=== PATIENT | female | born 1990 | race Caucasian/White ===

== ENCOUNTER 2016-12-22 20:27 | Observation (INO) | payer OTHER ==
[~2016-12-22 20:27] MED LIST: VENTAER INH
[2016-12-22] MEDS: SODIUM CHLORIDE 0.9% FLUSH 10 ML FLUSH IV FLUSH SCH (21:00)
[2016-12-22] MEDS ORDERED: SODIUM CHLORIDE 0.9% FLUSH 10 ML FLUSH IV FLUSH PRN (21:00)
[2016-12-22] MEDS ORDERED: RESP: ALBUTEROL 1.25 MG/3 ML NEB (PRN) NEB (21:00)
[2016-12-22] MEDS: SODIUM CHLOR 0.9% 1000 ML INJ 1,000 ML IV SCH (21:20)
[2016-12-22] MEDS: MORPHINE SULFATE 4 MG/ML INJ IV PUSH PRN (21:20)
[2016-12-22] MEDS: ENOXAPARIN SODIUM 40 MG/0.4 ML SYRINGE SQ SCH (21:22)
[2016-12-22 22:21] VITALS: O2SAT 100
[2016-12-23] VITALS: BP 111/72; PULSE 77; RESP 20; TEMP 97.6; O2SAT 100
[2016-12-23] MEDS: MORPHINE SULFATE 4 MG/ML INJ IV PUSH PRN ×5 (00:24→13:59)
[2016-12-23] MEDS: ONDANSETRON HCL 4 MG/2 ML VIAL IV PRN ×3 (00:24→13:58)
[2016-12-23] MEDS: SODIUM CHLOR 0.9% 1000 ML INJ 1,000 ML IV SCH ×2 (05:19→15:48)
[2016-12-23 06:48] LABS: BASOPHIL % 0.3 % (0.0-2.0); EOSINOPHIL % 18.8 % (0.0-4.0); HEMATOCRIT 33.9 % (35.0-46.0); HEMO FLAGS DIFF FINAL; LYMPH % 38.5 % (9.0-44.0); MEAN CELL VOLUME 82.5 FL (80.0-100.0); MEAN CORPUSCULAR HEMOGLOBIN 26.5 PG (27.0-34.0); MEAN CORPUSCULAR HGB CONC 32.1 % (32.0-36.0); MONO % 4.4 % (0.0-8.0); PLATELET COUNT 305 TH/MM3 (150-450); RED BLOOD COUNT 4.11 MIL/MM3 (4.00-5.30); RED CELL DISTRIBUTION WIDTH 14.3 % (11.6-17.2); WHITE BLOOD COUNT 10.5 TH/MM3 (4.0-11.0)
[2016-12-23 06:57] LABS: POTASSIUM 3.6 MEQ/L (3.5-5.1)
[2016-12-23 07:03] LABS: BICARBONATE 26.9 MEQ/L (21.0-32.0)
[2016-12-23 08:00] VITALS: BP 94/63; PULSE 71; RESP 18; TEMP 97.5; O2SAT 99
[2016-12-23] MEDS: SODIUM CHLORIDE 0.9% FLUSH 10 ML FLUSH IV FLUSH SCH ×2 (08:14→20:11)
[2016-12-23] MEDS ORDERED: ACETAMINOPHEN 325 MG TAB PO PRN (08:30)
[2016-12-23] MEDS ORDERED: NALOXONE HCL 0.4 MG/ML AMP IV PRN (08:30)
[2016-12-23] MEDS ORDERED: DOCUSATE SODIUM 100 MG CAP PO SCH (08:30)
[2016-12-23] MEDS ORDERED: BISACODYL 10 MG SUPP RECTAL PRN (08:30)
--- NOTE | 2016-12-23 09:48 | HHI.HP ---
[facility] Service [facility] ([place], [place])ists Primary Care Physician No Primary Care Physician Admission Diagnosis Abdominal pain Diagnoses: Chief Complaint: Abdominal pain Travel History International Travel<30 Days: No Contact w/Intl Traveler <30 Da: No Traveled to Known Affected Are: No History of Present Illness This is a 26-year-old female with past medical history of endometriosis and ovarian cyst. She comes in complaining of lower abdominal pain that started 1 week ago. It is constant moderate dull pain with sharp exacerbations specially after eating in the lower abdomen associated with nausea and diarrhea and she did have a few episodes of vomiting a couple days ago. Has been taking Imodium without any relief of her watery diarrhea and denies fever, chills, urinary symptoms, bloody stool, rash, back pain, dizzy, lightheaded, recent antibiotic use, recent travels or sick contacts. She has been drinking well water but uses filter. States her diarrhea has improved the last couple of days but continues to have abdominal pain requiring IV morphine. Review of Systems Except as stated in HPI: all other systems reviewed are Neg Past Family Social History Past Medical History As previously mentioned. Also with asthma. LMP a week ago on Depo shots Past Surgical History No previous surgery Reported Medications Ventolin Hfa 18 GM Inh (Albuterol Sulfate) 90 Mcg/Act Aer 1 Puff INH Q4H PRN Allergies: Coded Allergies: No Known Allergies (Unverified , 12/22/16) Family History Father with Crohn's disease. Grandmother with thyroid cancer Social History Does not drink. Uses E cig Physical Exam Vital Signs Vital Signs Date Time Temp Pulse Resp B/P Pulse Ox O2 Delivery O2 Flow Rate FiO2 12/23/16 08:00 97.5 71 18 94/63 99 12/23/16 04:15 18 12/23/16 00:00 97.6 77 20 111/72 100 12/22/16 22:21 100 21 Physical Exam GENERAL: This is a well-nourished, well-developed patient, in distress due to pain SKIN: No rashes, ecchymoses or lesions. Cool and dry. HEAD: Atraumatic. Normocephalic. No temporal or scalp tenderness. EYES: Pupils equal round and reactive. Extraocular motions intact. No scleral icterus. No injection or drainage. ENT: Nose without bleeding, purulent drainage or septal hematoma. Throat without erythema, tonsillar hypertrophy or exudate. Uvula midline. Airway patent. NECK: Trachea midline. No JVD or lymphadenopathy. Supple, nontender, no meningeal signs. CARDIOVASCULAR: Regular rate and rhythm without murmurs, gallops, or rubs. RESPIRATORY: Clear to auscultation. Breath sounds equal bilaterally. No wheezes , rales, or rhonchi. GASTROINTESTINAL: Abdomen soft, tender lower quadrants with Rovsing sign, nondistended. No rebound tenderness. No guarding. No CVA tenderness MUSCULOSKELETAL: Extremities without clubbing, cyanosis, or edema. No joint tenderness, effusion, or edema noted. No calf tenderness. Negative Homans sign bilaterally. NEUROLOGICAL: Awake and alert. Cranial nerves II through XII intact. Motor and sensory grossly within normal limits. Five out of 5 muscle strength in all muscle groups. Normal speech. Laboratory Laboratory Tests Test 12/23/16 05:27 White Blood Count 10.5 Red Blood Count 4.11 Hemoglobin 10.9 Hematocrit 33.9 Mean Corpuscular Volume 82.5 Mean Corpuscular Hemoglobin 26.5 Mean Corpuscular Hemoglobin 32.1 Concent Red Cell Distribution Width 14.3 Platelet Count 305 Mean Platelet Volume 8.4 Neutrophils (%) (Auto) 38.0 Lymphocytes (%) (Auto) 38.5 Monocytes (%) (Auto) 4.4 Eosinophils (%) (Auto) 18.8 Basophils (%) (Auto) 0.3 Neutrophils # (Auto) 4.0 Lymphocytes # (Auto) 4.0 Monocytes # (Auto) 0.5 Eosinophils # (Auto) 2.0 Basophils # (Auto) 0.0 CBC Comment DIFF FINAL Differential Comment Sodium Level 145 Potassium Level 3.6 Chloride Level 111 Carbon Dioxide Level 26.9 Anion Gap 7 Blood Urea Nitrogen 4 Creatinine 0.65 Estimat Glomerular Filtration 111 Rate Random Glucose 80 Calcium Level 8.0 Lipase 189 Result Diagram: 12/23/1652612/23/16526 Assessment and Plan Problem List: (1) Diarrhea ICD Code: R19.7 Status: Acute (2) Abdominal pain ICD Code: R10.9 Status: Acute Assessment and Plan This is a 26-year-old female with past medical history of endometriosis and ovarian cyst. She comes in complaining of lower abdominal pain associated with nausea, vomiting and diarrhea that started 1 week ago. She also has an elevated lipase. Abdominal pain with nausea, vomiting and diarrhea. Patient continues to have significant abdominal pain requiring IV morphine. We'll obtain CT of the abdomen pelvis and stool studies. Continue IV hydration and pain management counseled regarding narcotics. Leukocytosis tender to above. We'll monitor Elevated lipase likely related to vomiting. Patient denies abdominal pain and tenderness. We'll monitor Normocytic normochromic anemia. No gross bleeding. We'll monitor. Likely secondary to menses Asthma. Not in exacerbation. Albuterol as needed. DVT prophylaxis with SCD and early ambulation. Discussed Condition With Patient and nursing staff Jamison Aragon MD December 23, 2016 09:48
[2016-12-23] MEDS ORDERED: DIATRIZOATE MEGLUM/DIATRIZOATE SOD 9 ML CUP PO ONE (10:30)
[2016-12-23 12:00] VITALS: BP 110/72; PULSE 69; RESP 18; TEMP 96.3; O2SAT 99
[2016-12-23] MEDS ORDERED: IOHEXOL 350 MG/ML 10 ML VIAL (for RAD DIAG) IV ONE (13:17)
--- NOTE | 2016-12-23 13:50 | RADHPO ---
EXAM DATE/TIME: 12/23/2016 13:01 [facility] COMPARISON: No previous studies available for comparison. INDICATIONS : Diffuse abdominal pain with nausea, vomiting, and diarrhea. IV CONTRAST: 95 cc Omnipaque 350 (iohexol) IV ORAL CONTRAST: Prescribed oral contrast ingested. RADIATION DOSE: 7.10 CTDIvol (mGy) MEDICAL HISTORY : Asthma. Endometriosis. Ovarian cysts. SURGICAL HISTORY : None. ENCOUNTER: Initial ACUITY: 1 week PAIN SCALE: 4/10 LOCATION: Bilateral abdomen/pelvis TECHNIQUE: Volumetric scanning of the abdomen and pelvis was performed. Using automated exposure control and ad justment of the mA and/or kV according to patient size, radiation dose was kept as low as reasonably achievable to obtain optimal diagnostic quality images. FINDINGS: LOWER LUNGS: The visualized lower lungs are clear. LIVER: Homogeneous density without lesion. There is no dilation of the biliary tree. No calcified gallston es. SPLEEN: Normal size without lesion. PANCREAS: Within normal limits. KIDNEYS: Normal in size and shape. There is no mass, stone or hydronephrosis. ADRENAL GLANDS: Within normal limits. VASCULAR: There is no aortic aneurysm. BOWEL/MESENTERY: The stomach, small bowel, and colon demonstrate no acute abnormality. There is no free intraperitone al air. Small amount of free fluid is identified in the pelvis. ABDOMINAL WALL: Within normal limits. RETROPERITONEUM: There is no lymphadenopathy. BLADDER: No wall thickening or mass. REPRODUCTIVE: Within normal limits. INGUINAL: There is no lymphadenopathy or hernia. MUSCULOSKELETAL: Within normal limits for patient age. CONCLUSION: Small amount of free fluid in the pelvis. No other evidence of acute process. Prashant Peng MD on December 23, 2016 at 13:34 Board Certified Radiologist. This report was verified electronically.
[2016-12-23] MEDS ORDERED: IBUPROFEN 400 MG TAB PO PRN (14:45)
[2016-12-23] MEDS ORDERED: KETOROLAC TROMETHAMINE 30 MG/ML (IVP) VIAL IVP PRN ×2 (14:45)
[2016-12-23] MEDS ORDERED: IBUP-232 PO (14:52)
--- NOTE | 2016-12-23 14:52 | HHI.DCPOC ---
Discharge Care Plan Diagnosis: (1) Abdominal pain (2) Diarrhea Your Health Problems Are: Difficulty with ADL Exercise Tolerance Goals to Promote Your Health * To prevent worsening of your condition and complications * To maintain your health at the optimal level Directions to Meet Your Goals Take your medications as prescribed Follow your dietary instruction Follow activity as directed Keep your appointments as scheduled Take your immunizations and boosters as scheduled If your symptoms worsen call your PCP, if no PCP go to Urgent Care Center or Emergency Room Smoking is Dangerous to Your Health. Avoid second hand smoke Call the 24-hour hour crisis hotline for domestic abuse at Jamison Aragon MD December 23, 2016 14:52
[2016-12-23 16:00] VITALS: BP 106/72; PULSE 73; RESP 18; TEMP 97; O2SAT 92
[2016-12-23] MEDS: IBUPROFEN 600 MG TAB PO PRN (17:56)
[2016-12-23 20:00] VITALS: BP 107/64; PULSE 81; RESP 16; TEMP 97; O2SAT 99
[2016-12-23] MEDS: ENOXAPARIN SODIUM 40 MG/0.4 ML SYRINGE SQ SCH (20:14)
[2016-12-23 21:20] LABS: C. DIFF EPI 027 PRESUMPTIVE NEGATIVE (NEGATIVE); C. DIFF TOXIN PCR NEGATIVE (NEGATIVE)
[2016-12-24] VITALS: BP 92/52; PULSE 65; RESP 16; TEMP 98.4; O2SAT 98
[2016-12-24] MEDS: IBUPROFEN 600 MG TAB PO PRN ×2 (00:56→09:07)
[2016-12-24] MEDS: SODIUM CHLOR 0.9% 1000 ML INJ 1,000 ML IV SCH (04:29)
[2016-12-24 05:44] LABS: AUTOMATED NEUTROPHIL # 4.1 TH/MM3 (1.8-7.7); BASOPHIL # 0.1 TH/MM3 (0-0.2); BASOPHIL % 1.1 % (0.0-2.0); EOSINOPHIL # 1.6 TH/MM3 (0-0.4); EOSINOPHIL % 17.1 % (0.0-4.0); HEMATOCRIT 36.6 % (35.0-46.0); HEMO FLAGS DIFF FINAL; LYMPH % 34.5 % (9.0-44.0); LYMPHOCYTE # 3.2 TH/MM3 (1.0-4.8); MEAN CELL VOLUME 82.4 FL (80.0-100.0); MEAN CORPUSCULAR HEMOGLOBIN 26.6 PG (27.0-34.0); MEAN CORPUSCULAR HGB CONC 32.3 % (32.0-36.0); MONO % 4.6 % (0.0-8.0); NEUT % 42.7 % (16.0-70.0); PLATELET COUNT 358 TH/MM3 (150-450); RED BLOOD COUNT 4.44 MIL/MM3 (4.00-5.30); RED CELL DISTRIBUTION WIDTH 13.9 % (11.6-17.2); WHITE BLOOD COUNT 9.4 TH/MM3 (4.0-11.0)
[2016-12-24 05:47] LABS: POTASSIUM 4.2 MEQ/L (3.5-5.1)
[2016-12-24 05:50] LABS: BICARBONATE 25.8 MEQ/L (21.0-32.0); MAGNESIUM 2.2 MG/DL (1.5-2.5)
[2016-12-24 08:00] VITALS: BP 99/68; PULSE 80; RESP 20; TEMP 99.2; O2SAT 98
[2016-12-24] MEDS: SODIUM CHLORIDE 0.9% FLUSH 10 ML FLUSH IV FLUSH SCH (09:00)
--- NOTE | 2016-12-24 10:36 | HHI.PR ---
Subjective Remarks Follow-up gastroenteritis. She had 4 loose stools yesterday non-today. Improved abdominal pain. Tolerating diet. She wants to go home. Discussed with RN Objective Vitals Vital Signs Date Time Temp Pulse Resp B/P Pulse Ox O2 Delivery O2 Flow Rate FiO2 12/24/16 08:00 99.2 80 20 99/68 98 12/24/16 00:00 98.4 65 16 92/52 98 12/23/16 20:00 97.0 81 16 107/64 99 12/23/16 16:00 97.0 73 18 106/72 92 12/23/16 12:00 96.3 69 18 110/72 99 I/O 12/23/16 12/23/16 12/23/16 12/24/16 12/24/16 12/24/16 06:59 14:59 22:59 06:59 14:59 22:59 Intake Total 1021 ml 1715 ml 520 ml 930 ml Balance 1021 ml 1715 ml 520 ml 930 ml Intake Oral 120 ml 920 ml 520 ml 480 ml IV Total 901 ml 795 ml 450 ml # Voids 2 6 3 2 # Bowel Movements 1 0 0 Result Diagram: 12/24/16 0458 12/24/16 0458 Imaging Last Impressions Abdomen/Pelvis CT 12/23/16 0000 Signed Impressions: Service Date/Time: Friday, December 23, 2016 13:01 - CONCLUSION: Small amount of free fluid in the pelvis. No other evidence of acute process. Prashant Peng MD Objective Remarks GENERAL: This is a well-nourished, well-developed patient, in distress due to pain SKIN: No rashes, ecchymoses or lesions. Cool and dry. HEAD: Atraumatic. Normocephalic. No temporal or scalp tenderness. EYES: Pupils equal round and reactive. Extraocular motions intact. No scleral icterus. No injection or drainage. ENT: Nose without bleeding, purulent drainage or septal hematoma. Throat without erythema, tonsillar hypertrophy or exudate. Uvula midline. Airway patent. NECK: Trachea midline. No JVD or lymphadenopathy. Supple, nontender, no meningeal signs. CARDIOVASCULAR: Regular rate and rhythm without murmurs, gallops, or rubs. RESPIRATORY: Clear to auscultation. Breath sounds equal bilaterally. No wheezes , rales, or rhonchi. GASTROINTESTINAL: Abdomen soft, improving lower quadrant tenderness, nondistended. No rebound tenderness. No guarding. No CVA tenderness MUSCULOSKELETAL: Extremities without clubbing, cyanosis, or edema. No joint tenderness, effusion, or edema noted. No calf tenderness. Negative Homans sign bilaterally. NEUROLOGICAL: Awake and alert. Cranial nerves II through XII intact. Motor and sensory grossly within normal limits. Five out of 5 muscle strength in all muscle groups. Normal speech. Procedures none A/P Problem List: (1) Diarrhea ICD Code: R19.7 Status: Acute (2) Abdominal pain ICD Code: R10.9 Status: Acute Assessment and Plan This is a 26-year-old female with past medical history of endometriosis and ovarian cyst. She comes in complaining of lower abdominal pain associated with nausea, vomiting and diarrhea that started 1 week ago. She also has an elevated lipase. Abdominal pain with nausea, vomiting and diarrhea secondary to gastroenteritis. Clinically improving negative CT of the abdomen pelvis and C. difficile. Follow-up pending stool studies. Received IV hydration and pain management counseled regarding narcotics. Patient requested not to be on narcotics as she is reporting to work next week. She has been started on ibuprofen which she is tolerating Leukocytosis tender to above. Improved. We'll monitor Elevated lipase likely related to vomiting. Patient denies upper abdominal pain and tenderness. Improved. We'll monitor Normocytic normochromic anemia. No gross bleeding. Improved. We'll monitor. Likely secondary to menses Asthma. Not in exacerbation. Albuterol as needed. DVT prophylaxis with SCD and early ambulation. Discharge Planning Discharge patient to home Condition on discharge: Improved Regular Diet as tolerated Ad Kim activity Rx written: Ibuprofen Follow-up with primary care physician in one week Jamison Aragon MD December 24, 2016 10:36
[2016-12-24 12:00] VITALS: BP 99/64; PULSE 82; RESP 20; TEMP 98.6; O2SAT 99
== END 2016-12-24 16:49 | disposition home or self-care (01) ==
LOC: PHEDDLT 20:27 → PH3A 20:37 → INTOOBSV 20:37
PROVIDERS: ADMIT Hospitalist; ATTEND Hospitalist
DX: K52.9 Noninfective gastroenteritis and colitis, unspecified (principal); D72.829 Elevated white blood cell count, unspecified; R74.8 Abnormal levels of other serum enzymes; D64.9 Anemia, unspecified; J45.909 Unspecified asthma, uncomplicated; Z77.29 Contact with and (suspected) exposure to other hazardous substances
CPT/HCPCS: 74177; 80048; 80053; 81001; 83690; 83735; 84702; 85025; 87086; 87493; 87506; 96361; 96374; 96375; 99284; G0378; J1650; J1885; J2270; J2405; J7030; Q9963; Q9967; 99281

== ENCOUNTER 2017-06-10 11:37 | Emergency (ER) | payer OTHER ==
[~2017-06-10 11:37] MED LIST changes: +IBUP-232 PO
[2017-06-10 11:45] VITALS: BP 120/76; PULSE 95; RESP 16; TEMP 98.1; O2SAT 100
--- NOTE | 2017-06-10 11:49 | PD ---
Physical Exam Date Seen by Provider: Jun 10, 2017 Time Seen by Provider: 11:47 Narrative 7-year-old female presents emergency Department with sudden onset left flank pain which started intermittently and has worsened to a 9 out of 10. Patient has vomited once this morning secondary to pain. No fever, chills, or dysuria. She has history of kidney stones about 6 years ago. She has no known drug allergies. Data Data Last Documented VS Vital Signs Date Time Temp Pulse Resp B/P (MAP) Pulse Ox O2 Delivery O2 Flow Rate FiO2 06/10/17 11:45 98.1 95 16 120/76 (91) 100 MDM Medical Record Reviewed: Yes Supervised Visit with LUCY: Yes Narrative Course Vital signs are stable. Protocols ordered. Patient awaiting bed placement. Condition: Stable Noé Mendes Jun 10, 2017 11:49
[2017-06-10] MEDS ORDERED: SODIUM CHLORIDE 0.9% FLUSH 10 ML FLUSH IV FLUSH PRN (12:00)
[2017-06-10 12:29] VITALS: O2SAT 98
[2017-06-10 12:49] LABS: AUTOMATED NEUTROPHIL # 2.8 TH/MM3 (1.8-7.7); BASOPHIL % 0.5 % (0.0-2.0); EOSINOPHIL # 0.6 TH/MM3 (0-0.4); EOSINOPHIL % 9.3 % (0.0-4.0); HEMATOCRIT 39.6 % (35.0-46.0); HEMO FLAGS DIFF FINAL; LYMPH % 44.4 % (9.0-44.0); MEAN CELL VOLUME 84.7 FL (80.0-100.0); MEAN CORPUSCULAR HEMOGLOBIN 28.4 PG (27.0-34.0); MEAN CORPUSCULAR HGB CONC 33.6 % (32.0-36.0); MONO % 4.6 % (0.0-8.0); NEUT % 41.2 % (16.0-70.0); PLATELET COUNT 329 TH/MM3 (150-450); RED BLOOD COUNT 4.68 MIL/MM3 (4.00-5.30); RED CELL DISTRIBUTION WIDTH 13.7 % (11.6-17.2); WHITE BLOOD COUNT 6.9 TH/MM3 (4.0-11.0)
[2017-06-10 12:52] LABS: BACTERIA, URINE RARE /hpf; BLOOD, URINE NEG (NEG); GLUCOSE,URINE NEG (NEG); HYALINE CAST, URINE 1 /lpf (RARE); KETONE, URINE NEG (NEG); MUCUS URINE FEW /lpf (OCC); NITRITE,URINE NEG (NEG); SQUAMOUS EPITHELIAL CELL URINE 2 /hpf (0-5); TRANSITIONAL EPI CELLS, URINE <1 /hpf; URINE COLOR YELLOW (YELLW/STRAW)
[2017-06-10 12:55] LABS: COMMENT (UR) CULT NOT INDICATED; CULTURE IF INDICATED CULT NOT INDICATED
[2017-06-10 13:12] LABS: ALT (GPT) 20 U/L (10-53)
[2017-06-10 13:14] LABS: ALKALINE PHOSPHATASE 68 U/L (45-117); TOTAL BILIRUBIN ADULT 1.1 MG/DL (0.2-1.0)
[2017-06-10 13:37] LABS: ANION GAP 7 MEQ/L (5-15); AST (GOT) 25 U/L (15-37); BLOOD UREA NITROGEN 9 MG/DL (7-18); CHLORIDE 105 MEQ/L (98-107); GLOMERULAR FILTRATION RATE 79 ML/MIN (>89); SODIUM (NA) 137 MEQ/L (136-145)
[2017-06-10 13:38] LABS: POTASSIUM 3.8 MEQ/L (3.5-5.1)
--- NOTE | 2017-06-10 13:39 | RADRPT ---
EXAM DATE/TIME: 06/10/2017 12:39 [facility] COMPARISON: No previous studies available for comparison. INDICATIONS : Left flank pain starting this moroning. ORAL CONTRAST: No oral contrast ingested. RADIATION DOSE: 8.43 CTDIvol (mGy) MEDICAL HISTORY : Renal calculi. Asthma SURGICAL HISTORY : None. ENCOUNTER: Initial ACUITY: 1 day PAIN SCALE: 9/10 LOCATION: Left flank Abdomen TECHNIQUE: Volumetric scanning of the abdomen and pelvis was performed. Using automated exposure control and ad justment of the mA and/or kV according to patient size, radiation dose was kept as low as reasonably achievable to obtain optimal diagnostic quality images. DICOM format image data is available electro nically for review and comparison. FINDINGS: LOWER LUNGS: The visualized lower lungs are clear. LIVER: Homogeneous density without lesion. There is no dilation of the biliary tree. No calcified gallston es. SPLEEN: Normal size without lesion. PANCREAS: Within normal limits. KIDNEYS: Normal in size and shape. There is no mass, stone, or hydronephrosis. ADRENAL GLANDS: Within normal limits. VASCULAR: There is no aortic aneurysm. BOWEL/MESENTERY: The stomach, small bowel, and colon demonstrate no acute abnormality. There is no free intraperitone al air or fluid. ABDOMINAL WALL: A tiny umbilical hernia containing omental fat. RETROPERITONEUM: There is no lymphadenopathy. BLADDER: No wall thickening or mass. REPRODUCTIVE: Within normal limits. INGUINAL: There is no lymphadenopathy or hernia. MUSCULOSKELETAL: Within normal limits for patient age. CONCLUSION: No acute disease. Selwyn Her Jr., MD on June 10, 2017 at 13:33 Board Certified Radiologist. This report was verified electronically.
[2017-06-10] MEDS ORDERED: ONDANSETRON HCL 4 MG/2 ML VIAL IVP ONE (13:45)
[2017-06-10] MEDS ORDERED: KETOROLAC TROMETHAMINE 30 MG/ML (IVP) VIAL IVP ONE (13:45)
--- NOTE | 2017-06-10 13:50 | PD ---
HPI Chief Complaint: Flank/Kidney Pain Time Seen by Provider: 12:53 Travel History International Travel<30 days: No Contact w/Intl Traveler<30days: No Traveled to known affect area: No History of Present Illness HPI 27-year-old female presents emergency Department with sudden onset left flank pain which started intermittently and has worsened to a 9 out of 10. Patient has vomited once this morning secondary to pain. No fever, chills, or dysuria. She has history of kidney stones about 6 years ago. She reports the pain is similar. She has no known drug allergies. PFSH Past Medical History Asthma: Yes (Uses albuterol inhaler PRN) Cancer: No Cardiovascular Problems: No Endocrine: No Genitourinary: No Immune Disorder: No Implanted Vascular Access Dvce: No Kidney Stones: Yes Musculoskeletal: No Neurologic: No Psychiatric: No Reproductive: Yes (Endometriosis; Ovarian Cysts) Respiratory: Yes ?: Not Past Surgical History Other Surgery: No Social History Alcohol Use: No Tobacco Use: No (E-CIG) Substance Use: No Allergies-Medications (Allergen,Severity, Reaction): Coded Allergies: No Known Allergies (Unverified , 12/22/16) Reported Meds & Prescriptions Reported Meds & Active Scripts Active Ibuprofen 600 Mg Tab 600 Mg PO Q6H PRN Reported Ventolin Hfa 18 GM Inh (Albuterol Sulfate) 90 Mcg/Act Aer 1 Puff INH Q4H PRN Review of Systems Except as stated in HPI: all other systems reviewed are Neg General / Constitutional: No: Fever Eyes: No: Visual changes HENT: No: Headaches Cardiovascular: No: Chest Pain or Discomfort Respiratory: No: Shortness of Breath Gastrointestinal: No: Abdominal Pain Genitourinary: No: Dysuria Physical Exam Narrative GENERAL: alert well appearing female in no acute distress SKIN: Warm and dry. HEAD: Normocephalic. EYES: No scleral icterus. No injection or drainage. NECK: Supple, trachea midline. No JVD or lymphadenopathy. CARDIOVASCULAR: Regular rate and rhythm without murmurs, gallops, or rubs. RESPIRATORY: Breath sounds equal bilaterally. No accessory muscle use. GASTROINTESTINAL: Abdomen soft, non-tender, nondistended. MUSCULOSKELETAL: No cyanosis, or edema. BACK: Nontender without obvious deformity.mild left sided CVA tenderness. Data Data Last Documented VS Vital Signs Date Time Temp Pulse Resp B/P (MAP) Pulse Ox O2 Delivery O2 Flow Rate FiO2 06/10/17 12:29 98 Room Air 06/10/17 11:45 98.1 95 16 Orders Orders Complete Blood Count With Diff (06/10/17 11:49) Comprehensive Metabolic Panel (06/10/17 11:49) Urinalysis - C+S If Indicated (06/10/17 11:49) Iv Access Insert/Monitor (06/10/17 11:49) Ecg Monitoring (06/10/17 11:49) Oximetry (06/10/17 11:49) Sodium Chloride 0.9% Flush (Ns Flush) (06/10/17 12:00) Ed Urine Pregnancytest Poc (06/10/17 11:49) Ct Abd/Pel W/O Iv Contrast (06/10/17 ) Ondansetron Inj (Zofran Inj) (06/10/17 13:45) Ketorolac Inj (Toradol Inj) (06/10/17 13:45) Labs Laboratory Tests Test 06/10/17 12:05 06/10/17 12:15 White Blood Count 6.9 TH/MM3 Red Blood Count 4.68 MIL/MM3 Hemoglobin 13.3 GM/DL Hematocrit 39.6 % Mean Corpuscular Volume 84.7 FL Mean Corpuscular Hemoglobin 28.4 PG Mean Corpuscular Hemoglobin Concent 33.6 % Red Cell Distribution Width 13.7 % Platelet Count 329 TH/MM3 Mean Platelet Volume 8.2 FL Neutrophils (%) (Auto) 41.2 % Lymphocytes (%) (Auto) 44.4 % Monocytes (%) (Auto) 4.6 % Eosinophils (%) (Auto) 9.3 % Basophils (%) (Auto) 0.5 % Neutrophils # (Auto) 2.8 TH/MM3 Lymphocytes # (Auto) 3.0 TH/MM3 Monocytes # (Auto) 0.3 TH/MM3 Eosinophils # (Auto) 0.6 TH/MM3 Basophils # (Auto) 0.0 TH/MM3 CBC Comment DIFF FINAL Differential Comment Blood Urea Nitrogen 9 MG/DL Creatinine 0.87 MG/DL Random Glucose 84 MG/DL Total Protein 8.5 GM/DL Albumin 4.3 GM/DL Calcium Level 8.9 MG/DL Alkaline Phosphatase 68 U/L Aspartate Amino Transf (AST/SGOT) 25 U/L Alanine Aminotransferase (ALT/SGPT) 20 U/L Total Bilirubin 1.1 MG/DL Sodium Level 137 MEQ/L Potassium Level 3.8 MEQ/L Chloride Level 105 MEQ/L Carbon Dioxide Level 25.0 MEQ/L Anion Gap 7 MEQ/L Estimat Glomerular Filtration Rate 79 ML/MIN Urine Color YELLOW Urine Turbidity CLEAR Urine pH 6.0 Urine Specific Rudd 1.037 Urine Protein 30 mg/dL Urine Glucose (UA) NEG mg/dL Urine Ketones NEG mg/dL Urine Occult Blood NEG Urine Nitrite NEG Urine Bilirubin NEG Urine Urobilinogen LESS THAN 2.0 MG/DL Urine Leukocyte Esterase TRACE Urine RBC 1 /hpf Urine WBC 4 /hpf Urine Squamous Epithelial Cells 2 /hpf Urine Transitional Epithelial Cells <1 /hpf Urine Bacteria RARE /hpf Urine Hyaline Casts 1 /lpf Urine Mucus FEW /lpf Microscopic Urinalysis Comment CULT NOT INDICATED MDM Medical Decision Making Medical Screen Exam Complete: Yes Emergency Medical Condition: Yes Differential Diagnosis nephrolithiasis, pyelonephritis, uti, flank pain Narrative Course 27 year old here with left flank pain & associated nausea & vomiting today. similar pain in the past with left sided kidney stone & pyelonephritis. URINE : NEGATIVE CT ABD/PELVIS: NORMAL STUDY CBC: unremarkable CMP:unremarkable UA: + leuk, + bacteria Discussed all diagnostic findings with patient she was advised to follow up with her PCP for recheck. Diagnosis Primary Impression: Flank pain Referrals: Primary Care Physician Additional Instructions: take the medication as prescribed. Take over the counter ibuprofen 600-800mg by mouth every 6-8 hours as needed for pain. rest, stay hydrated. Return if you develop new or worsening symptoms Scripts Ciprofloxacin (Cipro) 500 Mg Tab 500 MG PO BID for Infection for 7 Days, #14 TAB 0 Refills Prov: Nohemi Clarke 06/10/17 Disposition: DISCHARGE HOME Condition: Stable Nohemi Clarke Jun 10, 2017 13:50
[2017-06-10] MEDS ORDERED: CIPR-9 PO (14:02)
== END 2017-06-10 16:31 | disposition home or self-care (01) ==
LOC: NEPD 11:37
DX: R10.9 Unspecified abdominal pain (principal); Z87.442 Personal history of urinary calculi; N83.209 Unspecified ovarian cyst, unspecified side
CPT/HCPCS: 74176; 80053; 81001; 84703; 85025; 96374; 96375; 99285; J1885; J2405